=== PATIENT | female | born 1995 | race Caucasian/White ===

== ENCOUNTER 2019-03-12 06:59 | Observation (INO) | payer OTHER ==
[2019-03-12] MEDS ORDERED: Sodium Chloride 0.9% 1000 ML 1,000 ML IV STA ×2 (07:52→10:48)
[2019-03-12] MEDS ORDERED: Zofran 4 MG/2 ML VIAL IV ONE (07:52)
[2019-03-12] MEDS ORDERED: TYLENOL 325 MG PO ONE (07:52)
[2019-03-12] MEDS ORDERED: TYLENOL 325 MG ONE (08:03)
[2019-03-12] MEDS ORDERED: Sodium Chloride 0.9% 1000 ML 1,000 ML ONE ×2 (08:03→10:52)
[2019-03-12] MEDS ORDERED: Zofran 4 MG/2 ML VIAL ONE (08:03)
[2019-03-12 08:06] LABS: BASOPHIL % 0.1 % (0.0-0.4); Basophil (Absolute #) 0.01 (0-0.4); Eosinophil % 0.3 % (0.00-5.0); Eosinophil (Absolute #) 0.04 (0-0.5); Granulocyte Absolute (ANC) 11.03 (1.4-6.9); Granulocytes % 82.9 % (36.0-66.0); Hematocrit 35.8 % (35-47); Hemoglobin 12.6 gm/dl (12.0-16.0); Lymphocyte (Absolute #) 1.71 (1.0-4.6); Lymphocytes % 12.8 % (24.0-44.0); Mean Cell Volume 87.7 fl (78-100); Mean Corpuscular Hgb Concent. 35.2 g/dl (32-36); Mean Platelet Volume 10.3 fl (6-9.5); Monocyte (Absolute #) 0.52 (0.0-1.3); Monocytes % 3.9 % (0.0-12.0); Platelet Count 211 K/mm3 (150-450); Red Blood Count 4.08 M/mm3 (4.1-5.4); Red Cell Distribution Width 13.2 % (11.5-14.0); White Blood Count 13.3 K/mm3 (4.0-10.5)
[2019-03-12 08:08] LABS: Mean Corpuscular Hemoglobin 30.8 pg (26-32)
[2019-03-12 08:14] LABS: ALBUMIN 3.7 g/dL (3.5-5.0); ALKALINE PHOSPHATASE 55 U/L (38-126); BLOOD UREA NITROGEN 9 mg/dL (7-17); CHLORIDE 107 mmol/L (98-107); Calcium 9.6 mg/dL (8.4-10.2); Carbon Dioxide 21 mmol/L (22-30); Creatinine 1 0.52 mg/dL (0.52-1.04); Glucose 102 mg/dL (74-106); Potassium 3.6 mmol/L (3.5-5.1); SGOT/AST 12 U/L (14-36); SGPT/ALT 16 U/L (0-35); SODIUM 138 mmol/L (137-145)
[2019-03-12 08:25] LABS: Appearance CLOUDY (CLEAR); Bacteria MODERATE /HPF (NEGATIVE); Bilirubin NEGATIVE (NEGATIVE); Blood NEGATIVE Ery/ul (0-5); Epithelial Cells PACKED /HPF (FEW); Glucose NEGATIVE (NEGATIVE); Hyaline Casts 0-2 /LPF (0-2); Ketones NEGATIVE (NEGATIVE); Leukocyte Esterase MODERATE (NEGATIVE); Mucus SLIGHT /HPF (NEGATIVE); Nitrite NEGATIVE (NEGATIVE); Protein,Urine Dip NEGATIVE (Negative); Specific Gravity 1.017 (1.005-1.025); Urobilinogen NEGATIVE mg/dL (0-1)
[2019-03-12] MEDS ORDERED: ROCEPHIN 1 Gm-D5w 50 ml Bag** 1 G/50 ML IVPB IV STA (09:00)
[2019-03-12] MEDS ORDERED: ROCEPHIN 1 Gm-D5w 50 ml Bag** 1 G/50 ML IVPB IV ONE (09:04)
[2019-03-12] MEDS ORDERED: Transderm Scop 1.5MG Patch TOP ONE (10:42)
--- NOTE | 2019-03-12 12:35 | ERPHSYRPT ---
- History of Present Illness Historian: patient Exam Limitations: no limitations Patient Subjective Stated Complaint: mid abd pain since yesterday. vomiting since 0200 today. is 17 weeks . grava 1 para 0. Triage Nursing Assessment: to room per w/c. skin w/d, color normal. resp nonlabored. patient vomiting intermittently, holding abd. abd soft, nontender. normal bowel sounds. denies diarrhea. Physician History: Pt is a 24 y/o female that is 17 week , with no other medical conditions , that presented to the ER with nausea and vomiting. Pt complains of abdominal pain, with severe vomiting, and not able to tolerate PO intake. Pt denies diarrhea, and denies F/C. No dysuruia, frequency or urgency. No SOB or cough. Timing/Duration: today Activities at Onset: none Quality: cramping Abdominal Pain Onset Location: generalized abdomen Pain Radiation: no radiation Severity of Pain-Max: severe Severity of Pain-Current: moderate Modifying Factors: Improves With: nothing Associated Symptoms: nausea, vomiting Previous symptoms: no prior history Allergies/Adverse Reactions: hydrocodone Allergy (Verified 03/12/19 07:41) Home Medications: Vits W-Ca,Fe,FA(<1Mg) [] 1 each PO DAILY 03/12/19 [History] Hx Tetanus, Diphtheria Vaccination/Date Given: No Hx Influenza Vaccination/Date Given: No Hx Pneumococcal Vaccination/Date Given: No - Review of Systems Constitutional: Malaise Eyes: No Symptoms Ears, Nose, & Throat: No Symptoms Respiratory: No Cough, No Dyspnea Cardiac: No Chest Pain, No Edema, No Syncope Abdominal/Gastrointestinal: Abdominal Pain, Nausea, Vomiting Genitourinary Symptoms: No Dysuria Musculoskeletal: No Back Pain, No Neck Pain Skin: No Rash Neurological: No Dizziness, No Focal Weakness, No Sensory Changes Psychological: No Symptoms Endocrine: No Symptoms - Past Medical History Pertinent Past Medical History: Yes Other Medical History: states had appendicitis but did not have to have it removed. - Past Surgical History Past Surgical History: Yes - Social History Smoking Status: Never smoker Exposure to second hand smoke: No Drug Use: none Patient Lives Alone: No - Female History Hx Now: Yes (17 weeks) - Nursing Vital Signs Nursing Vital Signs: Initial Vital Signs Temperature 97.8 F 03/12/19 07:29 Pulse Rate 85 03/12/19 07:29 Respiratory Rate 16 03/12/19 07:29 Blood Pressure 126/87 03/12/19 07:29 O2 Sat by Pulse Oximetry 98 03/12/19 07:29 Pain Scale Pain Intensity 8 - Physical Exam General Appearance: moderate distress Eye Exam: PERRL/EOMI, eyes nml inspection Ears, Nose, Throat Exam: normal ENT inspection, pharynx normal, moist mucous membranes Neck Exam: normal inspection, non-tender, supple, full range of motion Respiratory Exam: normal breath sounds, lungs clear, No respiratory distress Cardiovascular Exam: regular rate/rhythm, normal heart sounds Gastrointestinal/Abdomen Exam: soft, tenderness (Diffused) Back Exam: normal inspection, normal range of motion, No CVA tenderness, No vertebral tenderness Extremity Exam: normal inspection, normal range of motion, pelvis stable Neurologic Exam: alert, oriented x 3, cooperative, normal mood/affect, nml cerebellar function, sensation nml, No motor deficits Skin Exam: normal color, warm, dry SpO2: 100 - Course Nursing assessment & vital signs reviewed: Yes - Radiology Ultrasound Exam Abdomen Ultrasound: tele radiology report (Normal US of abdomen) Ordered Tests: Active Orders 24 hr Category Date Time Status UPPER ABDOMEN [US] Stat Exams 03/12/19 07:53 Taken CBC W DIFF Stat Lab 03/12/19 07:40 Completed CMP Stat Lab 03/12/19 07:40 Completed CULTURE,URINE Stat Lab 03/12/19 07:59 Received UA W/RFX UR CULTURE Stat Lab 03/12/19 07:59 Completed Medication Summary Discontinued Medications Generic Name Dose Route Start Last Admin Trade Name Pabloq PRN Reason Stop Dose Admin Acetaminophen 975 mg 03/12/19 07:52 03/12/19 08:38 Tylenol 325 Mg PO 03/12/19 07:53 975 mg STAT ONE Administration Acetaminophen Confirm 03/12/19 08:03 Tylenol 325 Mg Administered 03/12/19 08:04 Dose 975 mg .ROUTE .STK-MED ONE Sodium Chloride 1,000 mls @ 999 mls/hr 03/12/19 07:52 03/12/19 09:35 Sodium Chloride 0.9% 1000 Ml IV 03/12/19 08:52 Infused .Q1H1M STA Infusion Sodium Chloride Confirm 03/12/19 08:03 Sodium Chloride 0.9% 1000 Ml Administered 03/12/19 08:04 Dose 1,000 mls @ ud .ROUTE .STK-MED ONE Ceftriaxone Sodium/Dextrose 1 g in 50 mls @ 100 mls/hr 03/12/19 09:00 10:06 Rocephin 1 Gm-D5w 50 Ml Bag IV 03/12/19 09:29 Infused STAT STA Infusion Ceftriaxone Sodium/Dextrose Confirm 03/12/19 09:04 Rocephin 1 Gm-D5w 50 Ml Bag Administered 03/12/19 09:05 Dose 1 g in 50 mls @ ud IV .STK-MED ONE Sodium Chloride 1,000 mls @ 999 mls/hr 03/12/19 10:48 03/12/19 10:58 Sodium Chloride 0.9% 1000 Ml IV 03/12/19 11:48 999 mls/hr .Q1H1M STA Administration Sodium Chloride Confirm 03/12/19 10:52 Sodium Chloride 0.9% 1000 Ml Administered 03/12/19 10:53 Dose 1,000 mls @ ud .ROUTE .STK-MED ONE Ondansetron HCl 4 mg 03/12/19 07:52 03/12/19 08:11 Zofran 4 Mg/2 Ml Vial IV 03/12/19 07:53 4 mg STAT ONE Administration Ondansetron HCl Confirm 03/12/19 08:03 Zofran 4 Mg/2 Ml Vial Administered 03/12/19 08:04 Dose 4 mg .ROUTE .STK-MED ONE Scopolamine HBr 1.5 mg 03/12/19 10:42 03/12/19 11:01 Transderm Scop 1.5mg Patch TOP 03/12/19 10:43 1.5 mg STAT ONE Administration Lab/Rad Data: Laboratory Result Diagrams 03/12/19 07:40 03/12/19 07:40 Laboratory Results 03/12/19 03/12/19 03/12/19 Range/Units 07:59 07:40 07:40 WBC 13.3 H (4.0-10.5) K/mm3 RBC 4.08 L (4.1-5.4) M/mm3 Hgb 12.6 (12.0-16.0) gm/dl Hct 35.8 (35-47) % MCV 87.7 (78-100) fl MCH 30.8 (26-32) pg MCHC 35.2 (32-36) g/dl RDW 13.2 (11.5-14.0) % Plt Count 211 (150-450) K/mm3 MPV 10.3 H (6-9.5) fl Gran % 82.9 H (36.0-66.0) % Eos # (Auto) 0.04 (0-0.5) Absolute Lymphs (auto) 1.71 (1.0-4.6) Absolute Monos (auto) 0.52 (0.0-1.3) Lymphocytes % 12.8 L (24.0-44.0) % Monocytes % 3.9 (0.0-12.0) % Eosinophils % 0.3 (0.00-5.0) % Basophils % 0.1 (0.0-0.4) % Absolute Granulocytes 11.03 H (1.4-6.9) Basophils # 0.01 (0-0.4) Sodium 138 (137-145) mmol/L Potassium 3.6 (3.5-5.1) mmol/L Chloride 107 (98-107) mmol/L Carbon Dioxide 21 L (22-30) mmol/L Anion Gap 14.0 (5-15) MEQ/L BUN 9 (7-17) mg/dL Creatinine 0.52 (0.52-1.04) mg/dL Estimated GFR > 60.0 ML/MIN Glucose 102 (74-106) mg/dL Calcium 9.6 (8.4-10.2) mg/dL Total Bilirubin 0.40 (0.2-1.3) mg/dL AST 12 L (14-36) U/L ALT 16 (0-35) U/L Alkaline Phosphatase 55 (38-126) U/L Serum Total Protein 7.0 (6.3-8.2) g/dL Albumin 3.7 (3.5-5.0) g/dL Urine Color JIMMY (YELLOW) Urine Appearance CLOUDY (CLEAR) Urine pH 5.0 (5-6) Ur Specific [place] 1.017 (1.005-1.025) Urine Protein NEGATIVE (Negative) Urine Ketones NEGATIVE (NEGATIVE) Urine Blood NEGATIVE (0-5) Daniel/ul Urine Nitrite NEGATIVE (NEGATIVE) Urine Bilirubin NEGATIVE (NEGATIVE) Urine Urobilinogen NEGATIVE (0-1) mg/dL Ur Leukocyte Esterase MODERATE (NEGATIVE) Urine WBC (Auto) 16-25 (0-5) /HPF Urine RBC (Auto) NONE (0-2) /HPF U Hyaline Cast (Auto) 0-2 (0-2) /LPF U Epithel Cells (Auto) PACKED (FEW) /HPF Urine Bacteria (Auto) MODERATE (NEGATIVE) /HPF Urine Mucus (Auto) SLIGHT (NEGATIVE) /HPF Urine Culture Reflexed YES (NO) Urine Glucose NEGATIVE (NEGATIVE) mg/dL - Progress Progress: unchanged Progress Note: 03/12/19 12:35 Pt was given IVF 2 liter bolus. She was given Zofran IV and Scopolamine patch. She still vomiting, with no relief. Pt was given 2 Tylenol tabs, but had no relief. Rocephin IV was given for UTI. I discussed the case with Dr Sidhu that agreed to acept her as obs, in the hospital. Discussed with : Khurram Will see patient in: hospital (observation) - Departure Departure Disposition: Observation Clinical Impression: Vomiting Condition: Stable Critical Care Time: No Referrals: GAY DECKER [Primary Care Provider] -
[2019-03-12] MEDS ORDERED: Phenergan 25 MG INJ IM PRN (12:38)
[2019-03-12] MEDS ORDERED: SUBLIMAZE 100 MCG/2 ML IV ONE (12:58)
[2019-03-12] MEDS ORDERED: ROBINUL IV ONE (12:58)
[2019-03-12] MEDS ORDERED: Xylocaine-Mpf 2% 5 Ml Vial IJ ONE (12:58)
[2019-03-12] MEDS ORDERED: BLOXIVERZ IV ONE (12:58)
[2019-03-12] MEDS ORDERED: DIPRIVAN 200 MG/20 ML IV ONE (12:58)
[2019-03-12] MEDS ORDERED: Propofol 1000 mg/100 ml Bottle IV ONE (12:58)
[2019-03-12] MEDS: DILAUDID 2 MG INJECTION IV PRN ×2 (13:31→22:56)
[2019-03-12] MEDS: Sodium Chloride 0.9% 1000 ML 1,000 ML IV SCH (16:04)
[2019-03-12] MEDS: TYLENOL 325 MG PO PRN (18:28)
[2019-03-12] MEDS: Zofran 4 MG/2 ML VIAL IV PRN (20:31)
--- NOTE | 2019-03-12 20:49 | XRAY ---
Indication: Abdominal pain, nausea, and vomiting. 17 weeks . Two-dimensional abdominal sonogram performed. Comparison: None Gallbladder normally distended without gallstones, wall thickening, or pericholecystic fluid. Common bile duct measures 5.3 mm. No intrahepatic biliary distention. Borderline splenomegaly measuring 12.6 cm in greatest dimension. Visualized portions of the liver, pancreas, spleen, aorta, IVC, and bladder appear sonographically unremarkable. Both kidneys normal in reniform shape. Right kidney measures 10.6 x 4.7 x 4.4 cm and the left measures 10.7 x 5.2 x 5.6 cm. No suspicious renal mass or hydronephrosis. Impression: Negative abdominal sonogram. Comment: Preliminary report was given.
[2019-03-13] MEDS: Sodium Chloride 0.9% 1000 ML 1,000 ML IV SCH (01:56)
[2019-03-13] MEDS: TYLENOL 325 MG PO PRN (04:50)
[2019-03-13 05:56] LABS: BASOPHIL % 0.1 % (0.0-0.4); Basophil (Absolute #) 0.01 (0-0.4); Eosinophil % 0.1 % (0.00-5.0); Eosinophil (Absolute #) 0.01 (0-0.5); Hemoglobin 11.1 gm/dl (12.0-16.0); Lymphocyte (Absolute #) 1.12 (1.0-4.6); Lymphocytes % 6.9 % (24.0-44.0); Mean Cell Volume 89.4 fl (78-100); Mean Corpuscular Hgb Concent. 34.7 g/dl (32-36); Monocyte (Absolute #) 0.97 (0.0-1.3); Monocytes % 5.9 % (0.0-12.0); Platelet Count 206 K/mm3 (150-450); Red Blood Count 3.58 M/mm3 (4.1-5.4); Red Cell Distribution Width 13.3 % (11.5-14.0); White Blood Count 16.3 K/mm3 (4.0-10.5)
[2019-03-13 06:26] LABS: ANION GAP 10.7 MEQ/L (5-15); BLOOD UREA NITROGEN 6 mg/dL (7-17); CHLORIDE 107 mmol/L (98-107); Calcium 8.4 mg/dL (8.4-10.2); Carbon Dioxide 22 mmol/L (22-30); Creatinine 1 0.49 mg/dL (0.52-1.04); Glucose 95 mg/dL (74-106); Potassium 3.3 mmol/L (3.5-5.1); SODIUM 136 mmol/L (137-145)
--- NOTE | 2019-03-13 09:15 | PCM.HP ---
History of Present Illness - Chief Complaint Chief Complaint: vomiting History of Present Illness: is a 24 year old female pt of mine from [facility], at 17w 3d. She started having abd pain in the night yesterday morning, about 2 a.m., which woke her up. She then started vomiting at 5 a.m. yesterday - vomited many times. She came to the ER yesterday and was found to have some 16-25 WBC in her urine (however, does not appear to be a clean sample). she was admitted on IV rocephin and IV fluids. Her nausea was resistant to scopalamine patch and IV zofran; did respond to IV dilaudid and phenergan. U/s in ER with borderline splenomegaly, GB looks fine. Pt states she still has her appendix although she was told years ago she had had an episode of appendicitis but the appendix didn't need to be removed at that time. Abd pain started generalized and has now centered on the epigastrum/RUQ. She rates it 3/10 at rest and 8/10 with movement; was 8/10 on admission. This morning she is feeling somewhat better. Has tolerated some jello. FHT were 152 bpm. Her WBC on admission were 13.3 - this morning are 16.3. - Review of Systems Constitutional: No Fever Abdominal/Gastrointestinal: Abdominal Pain, Nausea, Vomiting, No Diarrhea Genitourinary Symptoms: Dysuria (started 2d ago), Other (trouble passing gas briefly 2d ago) All Other Systems: Reviewed and Negative Medications & Allergies Home Medications: Home Medication List Vits W-Ca,Fe,FA(<1Mg) [] 1 each PO DAILY 03/12/19 [History Confirmed 03/12/19] Allergies/Adverse Reactions: Allergies Allergy/AdvReac Type Severity Reaction Status Date / Time hydrocodone Allergy Verified 03/12/19 13:09 - Past Medical History Past Medical History: Yes Comment: states had appendicitis but did not have to have it removed. - Female History Are you now?: Yes (17 weeks) - Past Surgical History Past Surgical History: Yes - Social History Smoking Status: Never smoker Exposure to second hand smoke: No Alcohol: None Drug Use: none - Physical Exam Vital Signs: Vital Signs - 24 hr Temp Pulse Resp BP Pulse Ox 03/13/19 08:00 98.6 F 96 H 16 119/65 97 03/13/19 03:55 98.1 F 96 H 17 102/58 97 03/12/19 23:51 97.7 F 107 H 19 120/68 98 03/12/19 20:00 98.1 F 95 H 16 121/67 99 03/12/19 19:39 98.5 F 95 H 16 121/67 99 03/12/19 16:00 98.5 F 98 H 16 124/64 98 03/12/19 13:33 97.8 F 91 H 19 118/76 100 03/12/19 12:43 91 H 19 118/76 100 03/12/19 12:37 100 03/12/19 09:57 16 130/86 General Appearance: mild distress, alert Neurologic Exam: oriented x 3, cooperative Eye Exam: eyes nml inspection Ears, Nose, Throat Exam: moist mucous membranes Neck Exam: normal inspection Respiratory Exam: normal breath sounds, lungs clear, No crackles/rales, No rhonchi, No wheezing Cardiovascular Exam: regular rate/rhythm, normal heart sounds, No murmur Gastrointestinal/Abdomen Exam: soft, normal bowel sounds, tenderness (throughout ), guarding (throughout), rebound (throughout), No distention, No mass Back Exam: normal inspection, No rash Extremity Exam: normal inspection, No pedal edema, No swelling Skin Exam: normal color, warm, dry, No rash Results - Labs Lab/Micro Results: Lab Results-Last 24 Hours 03/13/19 03/13/19 Range/Units 05:45 05:45 WBC 16.3 H (4.0-10.5) K/mm3 RBC 3.58 L (4.1-5.4) M/mm3 Hgb 11.1 L (12.0-16.0) gm/dl Hct 32.0 L (35-47) % MCV 89.4 (78-100) fl MCH 31.0 (26-32) pg MCHC 34.7 (32-36) g/dl RDW 13.3 (11.5-14.0) % Plt Count 206 (150-450) K/mm3 MPV 10.0 H (6-9.5) fl Gran % 87.0 H (36.0-66.0) % Eos # (Auto) 0.01 (0-0.5) Absolute Lymphs (auto) 1.12 (1.0-4.6) Absolute Monos (auto) 0.97 (0.0-1.3) Lymphocytes % 6.9 L (24.0-44.0) % Monocytes % 5.9 (0.0-12.0) % Eosinophils % 0.1 (0.00-5.0) % Basophils % 0.1 (0.0-0.4) % Absolute Granulocytes 14.20 H (1.4-6.9) Basophils # 0.01 (0-0.4) Sodium 136 L (137-145) mmol/L Potassium 3.3 L (3.5-5.1) mmol/L Chloride 107 (98-107) mmol/L Carbon Dioxide 22 (22-30) mmol/L Anion Gap 10.7 (5-15) MEQ/L BUN 6 L (7-17) mg/dL Creatinine 0.49 L (0.52-1.04) mg/dL Estimated GFR > 60.0 ML/MIN Glucose 95 (74-106) mg/dL Calcium 8.4 (8.4-10.2) mg/dL - Radiology Impressions Radiology Exams & Impressions: Radiology Procedures Category Date Time Status UPPER ABDOMEN [US] Stat Exams 03/12/19 07:53 Completed Assessment/Plan (1) Abdominal pain Current Visit: Yes Status: Acute Qualifiers: Abdominal location: generalized Qualified Code(s): R10.84 - Generalized abdominal pain Assessment & Plan: She is much more tender on exam than I anticipated. Abd u/s nonacute ( borderline splenomegaly, which should be rechecked with u/s in1 mo). She does still have her appendix, and her WBC count is elevated this morning. I would appreciate surgery input, thank you, before re-imaging this patient. Code(s): R10.9 - UNSPECIFIED ABDOMINAL PAIN (2) in second trimester Current Visit: Yes Status: Chronic (3) Vomiting Current Visit: Yes Status: Acute Qualifiers: Vomiting Intractability: intractable Nausea presence: with nausea Assessment & Plan: improved. Code(s): R11.10 - VOMITING, UNSPECIFIED
[2019-03-13] MEDS ORDERED: ROCEPHIN 1 Gm-D5w 50 ml Bag** 1 G/50 ML IVPB IV SCH (10:00)
[2019-03-13] MEDS: DILAUDID 2 MG INJECTION IV PRN (10:11)
[2019-03-13] MEDS: Zofran 4 MG/2 ML VIAL IV PRN (10:18)
--- NOTE | 2019-03-13 12:50 | XRAY ---
Indication: Pain right sided pain. Vomiting. Elevated WBC. 17 weeks . Coronal and axial MRI abdomen performed using T1 and T2-weighted sequences with special attention to the appendix. Comparison: None The appendix is identified and prominent up to 13 mm diameter. There is mild wall thickening near the base of the appendix with tiny periappendiceal and right colic gutter free fluid. Findings favor acute appendicitis. Partially visualized gravid uterus. Minimal right hydronephrosis presumed related to gravid status. Remaining visualized liver, adrenal glands, kidneys, bowel loops, and aorta appear unremarkable. No abnormal bone marrow signal. Impression: Abnormal appendix as detailed favoring acute appendicitis. Comment: Ordering clinician Dr. Patel was unavailable to take telephone report. Report was given to surgical nurseGareth at 1240 hrs. on March 13, 2019.
[2019-03-13] MEDS ORDERED: Lactated Ringers 1,000 ML IV SCH (13:00)
[2019-03-13] MEDS ORDERED: MEFOXIN 2 GM PREMIX** 2 GM/50 ML ML IV SCH (14:00)
[2019-03-13] MEDS ORDERED: Sensorcaine 0.25% 10 ML ONE (14:42)
[2019-03-13] MEDS ORDERED: Lactated Ringers 0 ML IV ONE (14:42)
--- NOTE | 2019-03-13 15:23 | CONS ---
CONSULT DATE: 03/13/2019 HISTORY: This patient is seen for Dr. Carlos Kilpatrick who was stator connector for our group today. As I was here doing some cases he asked that I see the patient. Apparently this patient came in yesterday with right sided abdominal pain. She had some vomiting, had some leukocytosis. I see where they did an ultrasound. I do not see that they did a CT scan or MRI at the time for some reason. I was consulted today as our office was called for surgical consult today. It was felt that the patient needed MRI as there was concern about appendicitis and this was done. The radiologist felt she had acute appendicitis with 13 mm appendix with some stranding, thick wall and some fluid around the gutter on this side. The patient has had leukocytosis. The nursing staff said the white count was 16.3 up from 13.3 yesterday. PAST MEDICAL HISTORY: Negative for any chronic illnesses. PAST SURGICAL HISTORY: Oral surgery in the past. She denied any abdominal surgeries. MEDICATIONS: vitamins. ALLERGIES: HYDROCODONE. FAMILY HISTORY: Heart disease. SOCIAL HISTORY: No smoking or alcohol abuse. REVIEW OF SYSTEMS: She is 17 weeks . She is afebrile. Vital signs stable. No chest pain or palpitations. Other systems negative or noncontributory as above and per preadmission questionnaire. Twelve systems reviewed per admission assessment. PHYSICAL EXAMINATION: GENERAL: Slightly uncomfortable otherwise no acute distress. HEENT: Sclera nonicteric. NECK: No JVD. CHEST: Equal excursion, nonlabored breathing. CVS: Regular rate and rhythm. ABDOMEN: Soft. Tenderness in the right side of the abdomen, a little voluntary guarding. NO rebound. EXTREMITIES: No significant edema. NEURO: Alert, moving extremities symmetrically. No gross motor deficits noted. IMPRESSION: Acute right lower quadrant pain. She has had pain over a day and a half. Apparently she was admitted yesterday and I do not see where any studies were done yesterday. I required MRI done today which appears to show acute appendicitis. I feel the patient will benefit from appendectomy. Options were discussed open versus laparoscopically. Given the patient's symptoms, I feel she definitely warrants appendectomy. I had a long discussion with the patient. I feel laparoscopic approach would be optimal at this point. General risk of bleeding or infection, risk of trocar injury or hernia, small risk of bowel, bladder, uterus issues or injury, or blood vessel issue or injury but not limited to. Possibility of finding a normal appendix would be removed incidentally. Risk of triggering labor, general risk of anesthesia, deep venous thrombosis, pulmonary embolism, pneumonia, possibility of subsequent intra-abdominal abscess or fistula formation possibly requiring percutaneous or open drainage at a later date. General risk of anesthesia, deep venous thrombosis, pulmonary embolism, pneumonia, perioperative risk of aches, pains, bloating or ileus but not limited to, risk of ongoing infection but not limited to. She understands all the above and prefers to go ahead and proceed with laparoscopic appendectomy possible open when OR time available. Anesthesia has explained the anesthesia risk regarding the and overall anesthesia risk for appendectomy. She understands and agrees to the planned procedure. The patient agrees to all of the above. See anesthesia notes for their explanation of the specific risks with anesthetic. Will proceed with laparoscopic appendectomy possible open when OR time available.
[2019-03-13] MEDS ORDERED: SUBLIMAZE 100 MCG/2 ML ONE (15:27)
[2019-03-13] MEDS ORDERED: MORPHINE SULFATE 10 MG/ML ONE (15:35)
[2019-03-13] MEDS ORDERED: Tylenol #3 Tablet PO PRN (16:33)
[2019-03-13] MEDS: D5W/0.45NS W/ 20mEq KCl 1000 ML 1,000 ML IV SCH (17:05)
[2019-03-13] MEDS: Zosyn 3.375GM/100 Ml D5W 3.375 GM/100 ML IVPB IV SCH ×2 (17:36→23:57)
[2019-03-13] MEDS: MORPHINE SULFATE 2 MG INJ IV PRN ×2 (18:17→21:25)
[2019-03-14] MEDS: MORPHINE SULFATE 2 MG INJ IV PRN ×4 (00:29→17:16)
[2019-03-14] MEDS: D5W/0.45NS W/ 20mEq KCl 1000 ML 1,000 ML IV SCH ×3 (04:10→23:29)
[2019-03-14] MEDS: TYLENOL 325 MG PO PRN ×4 (05:32→20:58)
[2019-03-14] MEDS: Zosyn 3.375GM/100 Ml D5W 3.375 GM/100 ML IVPB IV SCH ×4 (05:32→23:29)
[2019-03-14 06:16] LABS: Hematocrit 28.7 % (35-47); Hemoglobin 9.8 gm/dl (12.0-16.0); Mean Cell Volume 91.1 fl (78-100); Mean Corpuscular Hemoglobin 31.1 pg (26-32); Mean Corpuscular Hgb Concent. 34.1 g/dl (32-36); Mean Platelet Volume 10.1 fl (6-9.5); Platelet Count 203 K/mm3 (150-450); Red Blood Count 3.15 M/mm3 (4.1-5.4); Red Cell Distribution Width 13.4 % (11.5-14.0); White Blood Count 13.9 K/mm3 (4.0-10.5)
--- NOTE | 2019-03-14 09:10 | OP ---
SURGERY DATE/TIME: 03/13/2019 1432 This patient was seen for Dr. Carlos Kilpatrick who was stone paver for our group today. PREOPERATIVE DIAGNOSES: 1) 17 weeks . 2) Acute appendicitis on history and physical exam finding and MRI. POSTOPERATIVE DIAGNOSIS: Acute gangrenous appendicitis, some localized peritonitis plus/minus micro-perforation. PROCEDURE: Laparoscopic appendectomy. SURGEON: Dr. Maurice Patel. ANESTHESIA: General. ESTIMATED BLOOD LOSS: Minimal. INDICATIONS: As noted above. Risks and benefits explained in detail but not limited to and consent obtained. DESCRIPTION OF PROCEDURE AND FINDINGS: The patient was taken to the operating room. General anesthesia was induced. Abdomen prepped and draped in usual sterile fashion. After official time out and no disagreement with planned procedure, a transverse incision made well above the umbilical area. Fascia grasped and pulled upwards with a Shalom. Veress needle inserted and tested with saline. Pneumoperitoneum easily accomplished. Given her the pressures were kept lower at about 10 to 12 range. It was insufflated at 10 to 12 range. Bladeless port and camera were inserted in the right upper quadrant. A 5 mm bladeless port and camera inserted without difficulty. There was no evidence of any intra-abdominal injury secondary to trocar or Veress needle placement. A 5 mm port placed at the supraumbilical area under direct vision of the camera and another 5 mm port was placed a few centimeters below the umbilical area staying well away from the gravid uterus. Right upper quadrant port was switched to 12 port to allow for the stapler. The patient had purulent fluid in the right lower quadrant and a gangrenous appendix plus or minus whether there was any micro-perforation or not, this was carefully mobilized away from the side wall and mobilized upwards. EndoGIA stapler fired across the base of the appendix to the cecum. Sequential reloads fired across the mesoappendix with pulsatile ooze obtained at the staple line this was controlled with Ligaclips. Appendix placed in Pleatman sac pulled free and passed off. Port is replaced. Copious amount of irrigation accomplished in the right lower quadrant. The foul fluid had been sent for culture. Copious amount of irrigation irrigated until clear. The staple line appeared to be intact on the cecum. No signs of any leakage. The mesoappendix staple line appeared to have good hemostasis at this point. Given the degree of infection and the fact of state, it was felt safest to go ahead and leave the SARA in position as it would be difficult to tell if she developed short term collection and the risk of any further study might be more risk than the small risk of placement of the drain at this point. Therefore copious amount of irrigation irrigated. The SARA drained placed through lateral port in lateral stab wound in the right lower quadrant area placed to bulb suction. Copious amount of irrigation irrigating until clear. The 12 mm fascial defect closed with puncture closure device under direct vision of the camera with #1 Vicryl. Pneumoperitoneum was decompressed. The wound is irrigated out. Skin incision closed with 4-0 Vicryl. Steri-Strips and sterile dressing applied. 0.25% Marcaine local injected along the skin incision fascial defects. The patient tolerated the procedure well. There were no immediate complications. Findings discussed with the family out in the waiting area.
--- NOTE | 2019-03-14 09:16 | PCM.NOTE ---
Date and Time: 03/14/19910 Subjective Assessment: Pt had appendectomy yesterday with Dr. Sierra, thank you. She did have SARA drain but no antibiotics out side of surgery. Last night her Tmax was 101.4 - Dr. Sierra's office notified this morning. She did tolerate some pudding. Her pain is in RLQ and worse with moving. At rest is 3/10. Moving, with pain meds, is 6/10 - without pain meds is 8/10. FHT have been documented twice per shift. - Review of Systems Constitutional: Fever Abdominal/Gastrointestinal: Abdominal Pain, No Vomiting, No Diarrhea Objective Exam General Appearance: mild distress (walking to bed), alert Skin Exam: normal color, warm, dry, No rash Respiratory Exam: normal breath sounds, lungs clear, No crackles/rales, No rhonchi, No wheezing Cardiovascular Exam: regular rate/rhythm, normal heart sounds, No murmur Gastrointestinal/Abdomen Exam: soft, tenderness (throughout), rebound (slight), No normal bowel sounds (hypoactive), No distention, No mass, No guarding Extremity Exam: No pedal edema, No swelling Back Exam: normal inspection, No rash OBJECTIVE DATA Vital Signs: Vital Signs - 24 hr Temp Pulse Resp BP Pulse Ox 03/14/19 07:33 98.0 F 92 H 17 107/59 96 03/14/19 05:00 101.2 F 92 H 20 116/65 95 03/14/19 01:00 101.4 F 104 H 22 118/64 95 03/13/19 19:55 98.1 F 100 H 18 125/64 95 03/13/19 18:55 98.9 F 98 H 20 122/70 96 03/13/19 17:55 98 F 92 H 18 125/75 95 03/13/19 17:25 98 F 92 H 16 116/64 95 03/13/19 16:55 98.2 F 92 H 16 122/72 95 03/13/19 16:40 98.8 F 94 H 18 120/66 94 L 03/13/19 16:25 97.5 F 91 H 18 119/70 94 L 03/13/19 16:10 98.8 F 94 H 18 120/66 94 L 03/13/19 16:00 97.5 F 91 H 18 119/70 94 L 03/13/19 12:59 97.8 F 98 H 16 117/66 97 03/13/19 12:00 97.8 F 98 H 16 117/66 97 Pain Assessment - Last Documented Pain Intensity 7 Pain Scale Used 0-10 Pain Scale Intake and Output: Intake & Output 03/11/19 03/12/19 03/13/19 03/14/19 11:59 11:59 11:59 11:59 Intake Total 1934 3431 Output Total 360 2155 Balance 1574 1276 Weight 91.626 kg 91.626 kg 91.626 kg Lab Results: Lab Results-Last 24 Hours 03/14/19 Range/Units 05:45 WBC 13.9 H (4.0-10.5) K/mm3 RBC 3.15 L (4.1-5.4) M/mm3 Hgb 9.8 L (12.0-16.0) gm/dl Hct 28.7 L (35-47) % MCV 91.1 (78-100) fl MCH 31.1 (26-32) pg MCHC 34.1 (32-36) g/dl RDW 13.4 (11.5-14.0) % Plt Count 203 (150-450) K/mm3 MPV 10.1 H (6-9.5) fl Radiology Exams: Radiology Procedures Category Date Time Status MRI ABD W/O CONTRAST [MRI] Urgent Exams 03/13/19 10:34 Completed Assessment/Plan (1) S/P appendectomy Current Visit: Yes Status: Acute Assessment & Plan: POD #1. Surgery to direct antibiotic therapy, if warranted. SARA drain with scant output this morning of serosanguinous fluid. I advised pt only eat if she is hungry; still on IV fluids. Likely keep her overnight in light of fever last night. Code(s): Z90.49 - ACQUIRED ABSENCE OF OTHER SPECIFIED PARTS OF DIGESTIVE TRACT (2) in second trimester Current Visit: Yes Status: Chronic Assessment & Plan: stable per FHT. (3) Vomiting Current Visit: Yes Status: Resolved Qualifiers: Vomiting Intractability: intractable Nausea presence: with nausea Code(s): R11.10 - VOMITING, UNSPECIFIED
[2019-03-14] MEDS: THERAGRAN MULTIVITAMIN PO SCH (09:41)
[2019-03-14] MEDS: Sodium Chloride 0.9% 1000 ML 1,000 ML IV SCH (16:17)
[2019-03-15] MEDS: MORPHINE SULFATE 2 MG INJ IV PRN (02:48)
[2019-03-15] MEDS: Zofran 4 MG/2 ML VIAL IV PRN (03:06)
[2019-03-15] MEDS: Zosyn 3.375GM/100 Ml D5W 3.375 GM/100 ML IVPB IV SCH (05:19)
[2019-03-15 05:59] LABS: Hematocrit 29.2 % (35-47); Hemoglobin 9.8 gm/dl (12.0-16.0); Mean Cell Volume 91.5 fl (78-100); Mean Corpuscular Hemoglobin 30.7 pg (26-32); Mean Corpuscular Hgb Concent. 33.6 g/dl (32-36); Mean Platelet Volume 10.1 fl (6-9.5); Platelet Count 201 K/mm3 (150-450); Red Blood Count 3.19 M/mm3 (4.1-5.4); Red Cell Distribution Width 13.6 % (11.5-14.0); White Blood Count 9.8 K/mm3 (4.0-10.5)
[2019-03-15 06:14] LABS: ANION GAP 10.8 MEQ/L (5-15); BLOOD UREA NITROGEN 6 mg/dL (7-17); CHLORIDE 108 mmol/L (98-107); Calcium 8.4 mg/dL (8.4-10.2); Carbon Dioxide 22 mmol/L (22-30); Creatinine 1 0.46 mg/dL (0.52-1.04); Glucose 90 mg/dL (74-106); Potassium 3.8 mmol/L (3.5-5.1); SODIUM 138 mmol/L (137-145)
[2019-03-15 08:02] VITALS: BP 97/54; PULSE 84; O2SAT 98
--- NOTE | 2019-03-15 08:50 | PCM.DS ---
Discharge Summary Date of Admission: 03/12/19 12:57 Admitting Physician: JOLLY GLORIA Consults: Consults on Case 03/13/19 09:45 Consult Surgery ROUTINE Primary Care Provider: GAY DECKER Allergies Allergies hydrocodone Allergy (Verified 03/12/19 13:09) Hospital Summary - Hospital Course Hospital Course: Pt is 24 yo at 17+ weeks who was admitted with vomiting and abdominal pain through the ER. She was tolerating some po but extremely tender with guarding, rebound, and an elevated WBC count (to > 16, increased from admission) when I examined her the next morning. Surgery was consulted and ordered an abdominal MRI which was suspicious for appendicitis. She did have an appendectomy that day and was placed on IV zosyn. She had a SARA drain placed which has drained serosanginous fluid. She was febrile to 101.4 her first postoperative day. In the past 24h she has been afebrile. Her WBC count is normal and her BMP is normal. She tolerated a sandwich last night. Will discharge her to home on 4d of po augmentin. She is to follow up with surgery regarding return to work as a [employer]. F/u with me in 1 week. - Vitals & Intake/Output Vital Signs: Vital Signs Temperature 97.7 F 03/15/19 08:00 Pulse Rate 84 03/15/19 08:00 Respiratory Rate 16 03/15/19 08:00 Blood Pressure 97/54 03/15/19 08:00 O2 Sat by Pulse Oximetry 98 03/15/19 08:00 Intake & Output: Intake & Output 03/12/19 03/13/19 03/14/19 03/15/19 11:59 11:59 11:59 11:59 Intake Total 1934 3431 4177 Output Total 360 2155 3680 Balance 1574 1276 497 Weight 91.626 kg 91.626 kg 91.626 kg - Lab Result Diagrams: 03/15/19 05:38 03/15/19 05:38 Lab Results-Last 24 Hrs: Lab Results-Last 24 Hours 03/15/19 03/15/19 Range/Units 05:38 05:38 WBC 9.8 (4.0-10.5) K/mm3 RBC 3.19 L (4.1-5.4) M/mm3 Hgb 9.8 L (12.0-16.0) gm/dl Hct 29.2 L (35-47) % MCV 91.5 (78-100) fl MCH 30.7 (26-32) pg MCHC 33.6 (32-36) g/dl RDW 13.6 (11.5-14.0) % Plt Count 201 (150-450) K/mm3 MPV 10.1 H (6-9.5) fl Sodium 138 (137-145) mmol/L Potassium 3.8 (3.5-5.1) mmol/L Chloride 108 H (98-107) mmol/L Carbon Dioxide 22 (22-30) mmol/L Anion Gap 10.8 (5-15) MEQ/L BUN 6 L (7-17) mg/dL Creatinine 0.46 L (0.52-1.04) mg/dL Estimated GFR > 60.0 ML/MIN Glucose 90 (74-106) mg/dL Calcium 8.4 (8.4-10.2) mg/dL Micro Results-Entire Visit: Microbiology 03/13/19 14:37 Urine Culture - Final Urine, Catheterized NO GROWTH 03/13/19 14:52 Anaerobic Culture - Preliminary Peritoneal Fluid 03/12/19 07:59 Urine Culture - Final Clean Catch Midstream MIXED IZZY; 3 OR MORE TYPES. NO PREDOMINANT ORGANISM. NO FURTHER WORKUP. PLEASE RESUBMIT IF CLINICALLY INDICATED. - Radiology Exams Ordered Rad Exams-Entire Visit: Radiology Procedures Category Date Time Status MRI ABD W/O CONTRAST [MRI] Urgent Exams 03/13/19 10:34 Completed Discharge Exam General Appearance: no apparent distress, alert Neurologic Exam: oriented x 3, cooperative Skin Exam: normal color, warm, dry, No rash Eye Exam: eyes nml inspection Ears, Nose, Throat Exam: moist mucous membranes Respiratory Exam: normal breath sounds, lungs clear, No crackles/rales, No rhonchi, No wheezing Cardiovascular Exam: regular rate/rhythm, normal heart sounds, No murmur Gastrointestinal/Abdomen Exam: soft, tenderness (diffuse, but decreased from yesterday), No normal bowel sounds (hypoactive but present), No distention, No mass, No guarding, No rebound Extremity Exam: normal inspection, No pedal edema, No swelling Back Exam: normal inspection, No rash Final Diagnosis/Problem List - Final Discharge Diagnosis/Problem (1) S/P appendectomy Current Visit: Yes Status: Acute Assessment & Plan: Doing well, home on 6d of po augmentin and pain meds per surgery. Resume activity per surgery. She is to f/u with Dr. Cardona next week. Code(s): Z90.49 - ACQUIRED ABSENCE OF OTHER SPECIFIED PARTS OF DIGESTIVE TRACT (2) in second trimester Current Visit: Yes Status: Chronic Assessment & Plan: Stable (3) Vomiting Current Visit: Yes Status: Resolved Code(s): R11.10 - VOMITING, UNSPECIFIED - Discharge Disposition: Home, Self-Care Condition: Good Prescriptions: New Amoxicillin/Potassium Clav [Augmentin 875-125 Tablet] 875 mg PO BID #12 tablet Ferrous Sulfate 325 mg [Feosol 325 mg] 325 mg PO DAILY #30 tablet Continue Vits W-Ca,Fe,FA(<1Mg) [] 1 each PO DAILY Follow up with: NICK CARDONA [COURTESY STAFF] - 03/20/19 8:00 am GAY DECKER [Primary Care Provider] - 1 Week
[2019-03-15] MEDS: THERAGRAN MULTIVITAMIN PO SCH (10:43)
== END 2019-03-15 11:25 | disposition home or self-care (01) ==
LOC: ED 06:59 → MED SURG 12:57
PROVIDERS: ADMIT Family Medicine; ATTEND Family Medicine
DX: O99.612 Diseases of the digestive system complicating pregnancy, second trimester (principal); K35.31 Acute appendicitis with localized peritonitis and gangrene, without perforation; Z3A.17 17 weeks gestation of pregnancy
CPT/HCPCS: 36000; 36415; 44970; 74181; 76700; 80048; 80053; 81001; 85025; 85027; 87070; 87075; 87086; 96360; 96361; 96365; 96374; 99285; G0378; 88304; 99140; J0694; J0696; J1170; J2270; J2405; J2543; J2550; J2704; J2710; J3010; A9270-GY

== ENCOUNTER 2019-06-22 16:11 | Observation (INO) | payer OTHER ==
[2019-06-22 16:36] VITALS: BP 133/79; PULSE 103
[2019-06-22 17:14] LABS: Amphetamine,Urine NEGATIVE (NEGATIVE); Barbiturate,Urine NEGATIVE (NEGATIVE); Benzodiazepine,Urine NEGATIVE (NEGATIVE); Cocaine,Urine NEGATIVE (NEGATIVE); Methadone,Urine NEGATIVE (NEGATIVE); Opiate,Urine NEGATIVE (NEGATIVE); PCP,Urine NEGATIVE (NEGATIVE); THC,Urine NEGATIVE (NEGATIVE)
== END 2019-06-22 17:04 | disposition home or self-care (01) ==
LOC: OB 16:11
PROVIDERS: ADMIT Family Medicine; ATTEND Family Medicine
DX: Z34.03 Encounter for supervision of normal first pregnancy, third trimester (principal)
CPT/HCPCS: 59025; 80307; G0378

== ENCOUNTER 2019-08-23 14:51 | Inpatient (IN) | payer OTHER ==
[2019-08-23] MEDS ORDERED: Cervidil 10 MG VAG SCH (17:00)
[2019-08-23] MEDS ORDERED: BRETHINE 1 MG/ML SQ PRN (17:00)
[2019-08-23 18:13] LABS: Absolute Neutrophil Ct (ANC) 8.96 (1.4-6.9); BASOPHIL % 0.1 % (0.0-0.4); Basophil (Absolute #) 0.01 (0-0.4); Eosinophil % 0.5 % (0.00-5.0); Eosinophil (Absolute #) 0.06 (0-0.5); Hematocrit 35.8 % (35-47); Hemoglobin 12.4 gm/dl (12.0-16.0); Lymphocyte (Absolute #) 1.52 (1.0-4.6); Lymphocytes % 13.5 % (24.0-44.0); Mean Corpuscular Hgb Concent. 34.6 g/dl (32-36); Mean Platelet Volume 10.9 fl (6-9.5); Monocyte (Absolute #) 0.67 (0.0-1.3); Neutrophil % 79.9 % (36.0-66.0); Platelet Count 192 K/mm3 (150-450); Red Blood Count 3.89 M/mm3 (4.1-5.4); Red Cell Distribution Width 13.2 % (11.5-14.0); White Blood Count 11.2 K/mm3 (4.0-10.5)
[2019-08-23 18:14] LABS: Mean Corpuscular Hemoglobin 31.8 pg (26-32)
[2019-08-23 18:53] LABS: Amphetamine,Urine NEGATIVE (NEGATIVE); Barbiturate,Urine NEGATIVE (NEGATIVE); Benzodiazepine,Urine NEGATIVE (NEGATIVE); Cocaine,Urine NEGATIVE (NEGATIVE); Methadone,Urine NEGATIVE (NEGATIVE); Opiate,Urine NEGATIVE (NEGATIVE); PCP,Urine NEGATIVE (NEGATIVE); THC,Urine NEGATIVE (NEGATIVE)
[2019-08-24] MEDS ORDERED: PITOCIN 30 UNITS/ LR 500 ML 500 ML IV SCH ×2 (06:00)
[2019-08-24] MEDS ORDERED: XYLOCAINE 1% HCL 20 ML MDV IJ PRN (06:00)
[2019-08-24] MEDS: Lactated Ringers 1,000 ML IV SCH ×3 (07:39→22:11)
[2019-08-24] MEDS ORDERED: TYLENOL EXTRA STRENGTH 500 MG PO STA (15:41)
[2019-08-24] MEDS ORDERED: Cervidil 10 MG VAG SCH (18:30)
[2019-08-25] MEDS: Lactated Ringers 1,000 ML IV SCH ×3 (04:58→14:47)
[2019-08-25] MEDS ORDERED: TYLENOL EXTRA STRENGTH 500 MG PO PRN (06:47)
[2019-08-25] MEDS ORDERED: OB EPIDURAL NAROPIN/SUFENTANIL IN NACL EPIDURAL PRN (12:10)
[2019-08-25] MEDS ORDERED: Ephedrine Sulfate 50 MG/ML IV PRN (12:10)
[2019-08-25] MEDS ORDERED: Lactated Ringers 1,000 ML IV ONE (12:10)
[2019-08-25] MEDS ORDERED: XYLOCAINE 2%/Epi 1:200000 20ML VIAL MPF IJ SCH (12:45)
[2019-08-25] MEDS ORDERED: Phenergan 25 MG INJ IM PRN (14:57)
[2019-08-25] MEDS ORDERED: DEMEROL 50 MG IV PRN ×2 (14:57→18:59)
[2019-08-25] MEDS ORDERED: Pepcid 20 MG VIAL IV SCH (15:00)
[2019-08-25] MEDS ORDERED: CLINDAMYCIN-D5W 900 MG/50 ML*** 900 MG/50 ML BAG IV SCH (15:00)
[2019-08-25] MEDS ORDERED: Xylocaine-Mpf 2% 5 Ml Vial ONE (15:03)
[2019-08-25 15:35] LABS: INR 1.02 (0.8-3.0); PROTIME 11.5 SECONDS (9.95-12.35)
[2019-08-25 15:38] LABS: PTT 31.8 SECONDS (25.3-37.0)
[2019-08-25] MEDS ORDERED: MORPHINE SULFATE 10 MG/ML ONE (15:49)
[2019-08-25] MEDS ORDERED: Astramorph-Pf 5 MG/10 ML ONE (15:49)
[2019-08-25] MEDS ORDERED: MARCAINE 0.5%-EPI 1:200,000 VL IJ ONE (15:53)
[2019-08-25] MEDS ORDERED: Marcaine 0.5%/Epinephrine 10 ML ONE (15:53)
[2019-08-25 16:21] LABS: ABO TYPING A; Antibody Screen NEGATIVE (NEGATIVE); RH TYPING POSITIVE
[2019-08-25 17:53] LABS: Appearance SLIGHTLY CLOUDY (CLEAR); Bilirubin NEGATIVE (NEGATIVE); Blood NEGATIVE Ery/ul (0-5); Glucose NEGATIVE (NEGATIVE); Ketones SMALL (NEGATIVE); Leukocyte Esterase NEGATIVE (NEGATIVE); Mucus SLIGHT /HPF (NEGATIVE); Nitrite NEGATIVE (NEGATIVE); Non-Squamous Epithelial Cells RARE /HPF (FEW); Protein,Urine Dip NEGATIVE (Negative); Specific Gravity 1.017 (1.005-1.025); Urobilinogen NEGATIVE mg/dL (0-1); WBC 0-2 /HPF (0-5)
[2019-08-25 18:09] LABS: Bacteria NONE SEEN /HPF (NEGATIVE)
[2019-08-25] MEDS ORDERED: CLARITIN 10 MG PO PRN (18:59)
[2019-08-25] MEDS ORDERED: MORPHINE SULFATE 2 MG INJ IV PRN (18:59)
[2019-08-25] MEDS ORDERED: Zofran 4 MG/2 ML VIAL IV PRN (18:59)
[2019-08-25] MEDS ORDERED: Narcan 0.4 MG/ML IV PRN (18:59)
[2019-08-25] MEDS ORDERED: HOLD NARCOTIC ANALGESICS AND SEDATIVES X24 HR MC PRN (18:59)
[2019-08-25] MEDS ORDERED: BENADRYL 50 MG/ML IV PRN (18:59)
[2019-08-25] MEDS: Dextrose 5%-Lr IV Solution 1000 ML 1,000 ML IV SCH (20:14)
[2019-08-25] MEDS: Nubain 10 MG/ML IV PRN (21:03)
[2019-08-25] MEDS: PERCOCET TABLET 5/325MG PO PRN (21:46)
[2019-08-26] MEDS ORDERED: Anucort-HC SUPPOSITORY PR PRN (03:25)
[2019-08-26] MEDS ORDERED: LANSINOH 40 GM TOP PRN (03:25)
[2019-08-26] MEDS ORDERED: Ambien 10 MG PO PRN (03:25)
[2019-08-26] MEDS ORDERED: TYLENOL EXTRA STRENGTH 500 MG PO PRN (03:25)
[2019-08-26] MEDS ORDERED: Mylicon 80MG PO PRN (03:25)
[2019-08-26] MEDS ORDERED: CORTISONE 1% CREAM TP PRN (03:25)
[2019-08-26] MEDS ORDERED: Dulcolax 10 MG SUPP PR PRN (03:25)
[2019-08-26] MEDS: Dextrose 5%-Lr IV Solution 1000 ML 1,000 ML IV SCH (03:58)
[2019-08-26] MEDS: PERCOCET TABLET 5/325MG PO PRN ×6 (03:58→22:03)
[2019-08-26] MEDS: Nubain 10 MG/ML IV PRN ×2 (05:28→10:07)
[2019-08-26 05:51] LABS: Absolute Neutrophil Ct (ANC) 7.53 (1.4-6.9); BASOPHIL % 0.1 % (0.0-0.4); Basophil (Absolute #) 0.01 (0-0.4); Eosinophil % 0.5 % (0.00-5.0); Eosinophil (Absolute #) 0.05 (0-0.5); Hematocrit 33.7 % (35-47); Hemoglobin 11.5 gm/dl (12.0-16.0); Lymphocyte (Absolute #) 1.89 (1.0-4.6); Lymphocytes % 18.4 % (24.0-44.0); Mean Cell Volume 92.3 fl (78-100); Mean Corpuscular Hemoglobin 31.5 pg (26-32); Mean Corpuscular Hgb Concent. 34.1 g/dl (32-36); Mean Platelet Volume 10.3 fl (6-9.5); Monocyte (Absolute #) 0.78 (0.0-1.3); Monocytes % 7.6 % (0.0-12.0); Neutrophil % 73.4 % (36.0-66.0); Platelet Count 169 K/mm3 (150-450); Red Blood Count 3.65 M/mm3 (4.1-5.4); Red Cell Distribution Width 13.4 % (11.5-14.0); White Blood Count 10.3 K/mm3 (4.0-10.5)
[2019-08-26] MEDS: Colace 100 MG PO SCH ×2 (10:08→22:02)
[2019-08-26] MEDS: FERREX 150 PO SCH (10:08)
[2019-08-26 12:11] VITALS: O2SAT 99
[2019-08-26] MEDS: MOTRIN 400 MG PO PRN (20:31)
[2019-08-27] MEDS: PERCOCET TABLET 5/325MG PO PRN ×3 (02:25→13:01)
[2019-08-27] MEDS: MOTRIN 400 MG PO PRN ×2 (05:51→15:25)
[2019-08-27] MEDS: FERREX 150 PO SCH (10:21)
[2019-08-27] MEDS: Colace 100 MG PO SCH (10:21)
[2019-08-27 10:29] VITALS: BP 121/75; PULSE 107
--- NOTE | 2019-08-27 12:29 | PCM.DS ---
Discharge Summary Date of Admission: 08/25/19 15:48 Admitting Physician: TINA LEIGH Consults: Consults on Case 08/25/19 14:57 Notify Anesthesia Provider Primary Care Provider: GAY DECKER Allergies Allergies hydrocodone Allergy (Verified 08/23/19 17:37) Nausea Hospital Summary - Hospital Course Hospital Course: admitted for induction 40+wks SGA and oligohydramnios. failed induction, had primary c section and doing great postoperatively. - Vitals & Intake/Output Vital Signs: Vital Signs Temperature 97.7 F 08/27/19 10:00 Pulse Rate 107 H 08/27/19 10:00 Respiratory Rate 18 08/27/19 10:00 Blood Pressure 121/75 08/27/19 10:00 O2 Sat by Pulse Oximetry 99 08/26/19 10:00 Intake & Output: Intake & Output 08/25/19 08/26/19 08/27/19 08/28/19 11:59 11:59 11:59 11:59 Intake Total 3229 4535 Output Total 3100 Balance 3229 1435 Weight 100.698 kg - Lab Result Diagrams: 08/26/19 05:43 Micro Results-Entire Visit: Microbiology 08/25/19 15:28 Urine Culture - Preliminary Catherized NO GROWTH TO DATE - Procedures and Test Procedures and Tests throughout Hospitalization: Therapy Orders & Screens 08/25/19 16:02 Standby Routine Comment: Diagnosis: INDUCTION OF LABOR Discharge Exam General Appearance: no apparent distress, alert Neurologic Exam: alert, oriented x 3 Respiratory Exam: normal breath sounds, lungs clear, No respiratory distress Cardiovascular Exam: regular rate/rhythm, normal heart sounds Gastrointestinal/Abdomen Exam: soft, other (incision c/d/i, well approximated) Extremity Exam: normal inspection, normal range of motion Skin Exam: normal color, warm, dry Final Diagnosis/Problem List - Final Discharge Diagnosis/Problem (1) delivery delivered Current Visit: Yes Status: Acute Code(s): O82 - ENCOUNTER FOR DELIVERY WITHOUT INDICATION - Discharge Disposition: Home, Self-Care Condition: Stable Prescriptions: New Oxycodone/APAP 5 mg/325 mg [Percocet Tablet 5/325Mg] 1 - 2 tab PO Q4H PRN PRN #30 tablet MDD 6 PRN Reason: Moderate Pain Continue Vits W-Ca,Fe,FA(<1Mg) [] 1 each PO DAILY Discontinued Ferrous Sulfate 325 mg [Feosol 325 mg] 325 mg PO DAILY #30 tablet Instructions: and Working, Diet, ( Delivery) (DC), Common Problems Additional Instructions: FOLLOW UP TO OB UNIT 2 DAYS AFTER DISCHARGE U ON Wednesday08/29/19, AT ANY TIME THAT IS CONVENIENT TO YOU, FOR CHECK UP OF YOU AND . YOU DO NOT NEED TO REGISTER, COME STRAIT TO OB UNIT. Follow up with: GAY DECKER [Primary Care Provider] - (FOLLOW UP WITH DR DECKER OR DR LEIGH END OF NEXT WEEK FOR POST APPOINTMENT. MAKE APPOINTMENTS FOR SAME TIME APPOINTMENT. ) Forms: OB Discharge Instructions
--- NOTE | 2019-08-28 08:51 | OP ---
SURGERY DATE/TIME: 08/25/2019 1521 PREOPERATIVE DIAGNOSES: 1) Nonreassuring heart tones. 2) Oligohydramnios. 3) Small for gestational age. 4) Term intrauterine . POSTOPERATIVE DIAGNOSES: 1) Nonreassuring heart tones. 2) Oligohydramnios. 3) Small for gestational age. 4) Term intrauterine . PROCEDURE: Primary low transverse section. SURGEON: Bird Phillips M.D. ANESTHESIA: Epidural by Dami Velasquez CRNA. ESTIMATED BLOOD LOSS: 400 cc. URINE OUTPUT: 150 cc clear straw-colored urine. SPECIMEN: Placenta was sent for pathology. DESCRIPTION OF PROCEDURE: After informed, written consent was obtained, the patient was taken to the operating room. She had her previously placed laboring epidural dosed per anesthesia and was prepped and draped in the usual sterile fashion after a Pop catheter was inserted. After adequate level of anesthesia was assessed, a low transverse skin incision was made by knife and carried down through the subcutaneous fat to the level of the fascia. The fascia was nicked on both sides of the midline and extended in horizontal fashion using curved Keller scissors. The superior free edge of the fascia was grasped with Shalom clamps and the underlying rectus muscles were dissected free. The same was repeated inferiorly. The peritoneal cavity was opened in blunt fashion and extended horizontal. A bladder flap was then created and reflected over the lower uterine segment. Horizontal uterine incision was made by knife and carried down to the level of the amniotic membranes which were carefully artificially ruptured. A viable female was delivered from the vertex presentation with significant caput present. The cord was clamped and cut. Oropharynx and nares are bulb suctioned free and she was handed off to the awaiting nursery team. Placenta was then manually extracted and the uterus was exteriorized. The uterine cavity was sponge curetted clean with lap sponge. The uterine incision was closed with #1 chromic in a running locked fashion. There was extension of the uterine incision into the left lower uterine segment which was likewise closed with #1 chromic with good closure and good hemostasis. Posterior cul-de-sac was wiped free of blood and clot and the uterus was returned to the peritoneal cavity. The lateral gutters were wiped free of blood and clot. Again the uterine incision as well as the small extension were inspected and noted to be hemostatic with good closure. Next, the fascia was closed with 0 Vicryl in running fashion with good closure and good hemostasis achieved there. The subcutaneous fat was irrigated with warm, sterile saline and any areas of bleeding were cauterized with electrocautery. Finally, the skin layer was closed with 4-0 undyed Vicryl in a running subcuticular fashion. Steri-Strips and occlusive dressing were placed over the incision and the patient was transferred to the recovery room in good condition.
== END 2019-08-27 16:10 | disposition home or self-care (01) | DRG 787 ==
LOC: OB 15:48 → OBSVTOIN 08-25 15:48
PROVIDERS: ADMIT Family Medicine; ATTEND Family Medicine
PROC: 10D00Z1 Extraction of Products of Conception, Low, Open Approach (ICD-10-PCS; principal; 2019-08-25)
DX: O75.0 Maternal distress during labor and delivery (principal); O41.03X0 Oligohydramnios, third trimester, not applicable or unspecified; O76 Abnormality in fetal heart rate and rhythm complicating labor and delivery; O36.5930 Maternal care for other known or suspected poor fetal growth, third trimester, not applicable or unspecified; Z3A.40 40 weeks gestation of pregnancy; Z37.0 Single live birth
CPT/HCPCS: 36415; 62322; 64488; 76815; 76937; 76942; 80307; 81001; 81003; 85025; 85610; 85730; 86850; 86900; 86901; 87086; 94799; 99140; G0378; J1200; J2270; J2274; J2300; J2405; J2590; J2795; L0625; A9270-GY

== ENCOUNTER 2019-10-23 06:12 | Day surgery (SDC) | payer OTHER ==
[2019-10-23] MEDS ORDERED: Lactated Ringers 1,000 ML IV SCH (06:30)
[2019-10-23] MEDS ORDERED: Lactated Ringers 1,000 ML IV ONE ×2 (06:55→08:14)
[2019-10-23] MEDS ORDERED: DIPRIVAN 200 MG/20 ML IV ONE ×2 (07:51→08:01)
[2019-10-23] MEDS ORDERED: SUBLIMAZE 100 MCG/2 ML ONE (08:06)
[2019-10-23 09:07] VITALS: BP 151/81; PULSE 64; O2SAT 97
--- NOTE | 2019-10-23 09:34 | OP ---
SURGERY DATE/TIME: 10/23/2019 0755 PREOPERATIVE DIAGNOSIS: Rectal bleeding. POSTOPERATIVE DIAGNOSIS: Mild proctitis. PROCEDURE: Colonoscopy with cold forceps biopsy. SURGEON: Dr. Paulson. ANESTHESIA: MAC. Medications given by anesthesia department. HISTORY: The patient is a 24 year-old white female who reports she has been having problems with rectal bleeding over the past couple of months. She had a that delivered by section approximately two months ago. She also had an appendectomy during her . The patient reports she has had intermittent problems with rectal bleeding and has become more severe in the last couple of months. She also notes she has trouble with diarrhea and at times constipation. The patient was felt the need to have endoscopic evaluation. She was appraised of the risks of the procedure including the risk of perforation, phlebitis, untoward reaction to medication, bleeding and missed lesions. The patient verbalized her understanding and desired to have the procedure performed. DESCRIPTION OF PROCEDURE: The patient was given the medications by the anesthesia department. She had continuous pulse oximetry, ECG monitoring, intermittent blood pressure monitoring and tidal CO2 monitoring during the examination. She was placed in the left lateral decubitus position. A digital rectal examination was performed and revealed normal anal sphincter tone. No masses. No fissure. No hemorrhoids. The flexible Olympus pediatric colonoscope was used to intubate the rectum. A view of the colon was developed sequentially to the cecum including a distance into the terminal ileum. Upon insertion and withdrawal, including a retroflex view in the rectum was noted a mild inflammatory response in the rectum this was biopsied using cold biopsy forceps to confirm the presence of proctitis. The scope was removed from the patient who tolerated the procedure well and was sent back to OP recovery in good condition. The prep was noted to be fair to good.
== END 2019-10-23 09:20 | disposition home or self-care (01) ==
LOC: SDC 06:12
PROVIDERS: ATTEND Family Medicine
DX: K62.89 Other specified diseases of anus and rectum (principal)
CPT/HCPCS: 84703; 88305; 88313; J2704; J3010